=== PATIENT | male | born 1955 | race Caucasian/White ===

== ENCOUNTER 2018-08-14 18:27 | Emergency (ER) | payer OTHER ==
[2018-08-14] MEDS ORDERED: KETOROLAC TROMETHAMINE 60 MG/2 ML SDV IM ONE (20:12)
[2018-08-14] MEDS ORDERED: DEXAMETHASONE SOD PHOS INJ 10 MG/1 ML VIAL IM ONE (20:12)
[2018-08-14] MEDS ORDERED: CYCLOBENZAPRINE HCL 10 MG TABLET PO ONE (20:13)
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
[2018-08-14 22:23] VITALS: BP 129/67
== END 2018-08-14 22:22 | disposition home or self-care (01) ==
LOC: EDBD → ER 18:27
DX: T14.8XXA Other injury of unspecified body region, initial encounter (principal); S13.4XXA Sprain of ligaments of cervical spine, initial encounter; M54.2 Cervicalgia; M25.511 Pain in right shoulder; M25.512 Pain in left shoulder; V69.40XA Driver of heavy transport vehicle injured in collision with unspecified motor vehicles in traffic accident, initial encounter; I10 Essential (primary) hypertension
CPT/HCPCS: 99283; 96372; 72050; J1885; J1100